=== PATIENT | female | born 1950 | race Caucasian/White ===

== ENCOUNTER 2022-06-05 10:00 | Outpatient (RCR) | payer OTHER, MEDICARE | END 2022-06-08 | LOC: PT 10:00 | PROVIDERS: ATTEND Specialist | DX: M54.50 Low back pain, unspecified (principal); M47.816 Spondylosis without myelopathy or radiculopathy, lumbar region ==

== ENCOUNTER 2022-06-09 06:48 | Outpatient (RCR) | payer OTHER, MEDICARE | END 2022-07-09 | LOC: PT 06:48 | PROVIDERS: ATTEND Specialist | DX: M47.816 Spondylosis without myelopathy or radiculopathy, lumbar region (principal) ==